=== PATIENT | male | born 1995 | race American Indian/Alaskan Native ===

== ENCOUNTER 2017-04-15 23:09 | Emergency (ER) | payer SELFPAY ==
[2017-04-16 00:15] LABS: Basophils % (Auto) 0.5 % (0.0-1.8); Hematocrit 43.2 % (35.5-45.6); Hemoglobin 13.8 gm/dl (11.8-15.2); Mean Corpuscular HGB Conc 32 % (32-34); Mean Corpuscular Hemoglobin 30 pg (28-32); Mean Corpuscular Volume 93 fl (84-94); Platelet Count 165 K/mm3 (140-440); Red Blood Count 4.65 M/mm3 (3.65-5.03); Red Cell Distribution Width 13.4 % (13.2-15.2); White Blood Count 6.3 K/mm3 (4.5-11.0)
[2017-04-16 00:33] LABS: Anion Gap 20 mmol/L; BUN/Creatinine Ratio 18.33; Blood Urea Nitrogen 22 mg/dL (9-20); Calcium 9.1 mg/dL (8.4-10.2); Carbon Dioxide 22 mmol/L (22-30); Chloride 102.9 mmol/L (98-107); Glucose 85 mg/dL (75-100); Potassium 4.1 mmol/L (3.6-5.0); Sodium 141 mmol/L (137-145)
[2017-04-16 02:13] LABS: Bilirubin,Urine NEG (Negative); Blood,Urine NEG (Negative); Ketones,Urine NEG (Negative); Leukocyte Esterase,Urine NEG (Negative); Mucus,Urine FEW /HPF; Nitrite,Urine NEG (Negative)
[2017-04-16] MEDS ORDERED: MOTRIN PO ONE (05:24)
--- NOTE | 2017-04-16 05:27 | Emergency Department Report ---
ED Back Pain/Injury HPI - General Chief Complaint: Back Pain/Injury Stated Complaint: KIDENY PAIN Time Seen by Provider: 04/16/17 03:17 Source: patient Limitations: No Limitations - History of Present Illness Initial Comments: 22-year-old male presents with complaint of 2 weeks of lower back pain. Denies any direct trauma no fever no chills. States he may have had slightly increased urinary frequency and some dysuria but denies any discharge and states he has not been sexually active in over 6 months. No history of STDs. No nausea no vomiting no abdominal pain no fevers no chills reported by the patient. Denies any foul-smelling urine. States he may have strained his lower back while lifting heavy boxes at work. Patient [place] [employer]. Patient is awake alert and oriented 3 nontoxic appearing not in acute distress. Comfortably on examination bed. Patient is ambulatory without assistance. MD Complaint: back pain Onset/Timin -: week(s) Severity: mild Severity scale (0 -10): 3 Worsens With: none - Related Data Previous Rx's Medication Instructions Recorded Last Taken Type Cyclobenzaprine [Flexeril] 10 mg PO TID PRN #12 tablet 04/16/17 Unknown Rx Naproxen [Naprosyn TAB] 500 mg PO BID PRN #20 tablet 04/16/17 Unknown Rx Allergies Allergy/AdvReac Type Severity Reaction Status Date / Time No Known Allergies Allergy Verified 04/15/17 23:42 ED Review of Systems ROS: Stated complaint: KIDENY PAIN Other details as noted in HPI Constitutional: denies: chills, fever Eyes: denies: eye pain, eye discharge, vision change ENT: denies: ear pain, throat pain Respiratory: denies: cough, shortness of breath, wheezing Cardiovascular: denies: chest pain, palpitations Endocrine: no symptoms reported Gastrointestinal: denies: abdominal pain, nausea, diarrhea Genitourinary: frequency. denies: urgency, dysuria Musculoskeletal: as per HPI, back pain. denies: joint swelling, arthralgia Skin: denies: rash, lesions Neurological: denies: headache, weakness, paresthesias Psychiatric: denies: anxiety, depression Hematological/Lymphatic: denies: easy bleeding, easy bruising ED Past Medical Hx - Past Medical History Previous Medical History?: No - Surgical History Past Surgical History?: No - Social History Smoking Status: Never Smoker Substance Use Type: None - Medications Home Medications: Home Medications Medication Instructions Recorded Confirmed Last Taken Type Cyclobenzaprine [Flexeril] 10 mg PO TID PRN #12 tablet 04/16/17 Unknown Rx Naproxen [Naprosyn TAB] 500 mg PO BID PRN #20 tablet 04/16/17 Unknown Rx ED Physical Exam - General Limitations: No Limitations General appearance: alert, in no apparent distress - Head Head exam: Present: atraumatic, normocephalic - Eye Eye exam: Present: normal appearance, PERRL, EOMI - ENT ENT exam: Present: mucous membranes moist - Neck Neck exam: Present: normal inspection - Respiratory Respiratory exam: Present: normal lung sounds bilaterally. Absent: respiratory distress - Cardiovascular Cardiovascular Exam: Present: regular rate, normal rhythm. Absent: systolic murmur, diastolic murmur, rubs, gallop - GI/Abdominal GI/Abdominal exam: Present: soft, normal bowel sounds - Rectal Rectal exam: Present: deferred - Extremities Exam Extremities exam: Present: normal inspection - Back Exam Back exam: Present: normal inspection, other (patient has no CVA tenderness on exam bilaterally) - Neurological Exam Neurological exam: Present: alert, oriented X3, CN II-XII intact, normal gait - Psychiatric Psychiatric exam: Present: normal affect, normal mood - Skin Skin exam: Present: warm, dry, intact, normal color. Absent: rash ED Course Vital Signs 04/15/17 04/16/17 04/16/17 23:42 02:47 07:02 Temperature 98.4 F 98.1 F 97.9 F Pulse Rate 70 53 L 56 L Respiratory 20 18 16 Rate Blood Pressure 107/62 105/47 Blood Pressure 117/74 [Right] O2 Sat by Pulse 98 97 98 Oximetry ED Medical Decision Making - Lab Data Result diagrams: 04/15/17 23:52 04/15/17 23:52 - Medical Decision Making A/P: Lower back pain 1-Motrin and Flexeril when necessary 2-CT unremarkable, UA, labs unremarkable. Slight elevation in CK. Patient tolerating by mouth fluids, I encouraged him to remain 3-follow-up with primary care 4- urinalysis unremarkable Critical care attestation.: If time is entered above; I have spent that time in minutes in the direct care of this critically ill patient, excluding procedure time. ED Disposition Clinical Impression: Back pain Qualifiers: Back pain location: low back pain Chronicity: acute Back pain laterality: bilateral Sciatica presence: without sciatica Qualified Code(s): M54.5 - Low back pain Disposition: TO HOME OR SELFCARE Is pt being admited?: No Does the pt Need Aspirin: No Condition: Stable Instructions: Low Back Strain (ED), Acute Low Back Pain (ED), Back Pain (ED) Prescriptions: Cyclobenzaprine [Flexeril] 10 mg PO TID PRN #12 tablet PRN Reason: Muscle Spasm Naproxen [Naprosyn TAB] 500 mg PO BID PRN #20 tablet PRN Reason: Pain Referrals: [facility] [Outside] - 3-5 Days [facility] [Outside] - 3-5 Days Forms: Work/School Release Form(ED) Time of Disposition: 06:45
--- NOTE | 2017-04-16 06:27 | Cat Scan Report ---
FINAL REPORT EXAM: CT ABDOMEN PELVIS WO CON HISTORY: flank pain, ? kidney stone TECHNIQUE: CT images obtained through the Abdomen and Pelvis without contrast. Transaxial,coronal and sagittal reformats are provided. PRIORS: None. FINDINGS: Imaged intrathoracic contents are unremarkable. Kidneys are normal in size, axis and position. No hydronephrosis or nephrolithiasis. The ureters are normal in course and caliber. No stones are seen within the urinary bladder. The liver, gallbladder, pancreas, spleen, and adrenal glands demonstrate a normal noncontrast appearance. Hollow enteric organs are normal in course and caliber. Large colonic stool burden. No findings of acute appendicitis. No intra-abdominal free air/fluid or lymphadenopathy. Aorta is normal in course and caliber. Superficial soft tissues are unremarkable. No acute or aggressive appearing skeletal findings. L5-S1 spondylolysis. IMPRESSION: No CT evidence of obstructive urolithiasis or other acute abdominal or pelvic findings.
[2017-04-16 07:03] VITALS: BP 117/74
== END 2017-04-16 07:02 | disposition home or self-care (01) ==
LOC: ED 23:09
DX: M54.5 Low back pain (principal); R30.0 Dysuria
CPT/HCPCS: 36415; 74176; 80048; 81001; 82550; 85025

== ENCOUNTER 2019-03-09 11:06 | Emergency (ER) | payer BC, OTHER ==
[2019-03-09 11:14] VITALS: BP 115/64
--- NOTE | 2019-03-09 11:16 | Event Note ---
ED Screening Note Date of service: 03/09/19 Time: 11:14 ED Screening Note: This is a 24 y.o. M. that presents to the ER for weakness and left flank pain for 2-3 months. He reports giving plasma for 3 months. Former smoker This initial assessment/diagnostic orders/clinical plan/treatment(s) is/are subject to change based on patients health status, clinical progression and re- assessment by fellow clinical providers in the ED. Further treatment and workup at subsequent clinical providers discretion. Patient/guardian urged not to elope from the ED as their condition may be serious if not clinically assessed and managed. Initial orders include: Labs
[2019-03-09 11:35] LABS: Bilirubin,Urine NEG (Negative); Blood,Urine NEG (Negative); Color,Urine Yellow (Yellow); Mucus,Urine FEW /HPF; Protein,Urine <15 mg/dL mg/dL (Negative)
[2019-03-09 11:41] LABS: Hematocrit 42.5 % (35.5-45.6); Hemoglobin 14.4 gm/dl (11.8-15.2); Mean Corpuscular HGB Conc 34 % (32-34); Mean Corpuscular Volume 93 fl (84-94); Platelet Count 177 K/mm3 (140-440); Red Blood Count 4.59 M/mm3 (3.65-5.03)
[2019-03-09] MEDS ORDERED: ZOFRAN IV ONE (11:48)
[2019-03-09] MEDS ORDERED: NACL 0.9% 1000 ML 1,000 ML IV ONE (11:48)
[2019-03-09 12:02] LABS: BUN/Creatinine Ratio 15; Blood Urea Nitrogen 15 mg/dL (9-20); Calcium 8.9 mg/dL (8.4-10.2); Hemolysis Index 5
--- NOTE | 2019-03-09 12:26 | Emergency Department Report ---
ED General Adult HPI - General Chief complaint: Medical Clearance Stated complaint: WEAKNESS Time Seen by Provider: 03/09/19 11:14 Source: patient Mode of arrival: Ambulatory Limitations: No Limitations - History of Present Illness Initial comments: Patient is a 24-year-old male presents to the emergency room with complaints of just feeling generalized fatigue. He states that yesterday he celebrated his birthday and had an entire bottle of champagne. He states he has associated nausea. He is able to tolerate by mouth intake. He denies any vomiting or abdominal pain. Patient states that he has also been donating plasma over the last couple months. He states he is also working 2 jobs. The patient states he just feels physically tired. He does not report any chest pain, chills, urinary sx, diarrhea, fever, shortness of breath, night sweats, or any other sx. - Related Data Previous Rx's Medication Instructions Recorded Last Taken Type Cyclobenzaprine [Flexeril] 10 mg PO TID PRN #12 tablet 04/16/17 Unknown Rx Naproxen [Naprosyn TAB] 500 mg PO BID PRN #20 tablet 04/16/17 Unknown Rx Allergies Allergy/AdvReac Type Severity Reaction Status Date / Time No Known Allergies Allergy Verified 04/15/17 23:42 ED Review of Systems ROS: Stated complaint: WEAKNESS Other details as noted in HPI Comment: All other systems reviewed and negative ED Past Medical Hx - Past Medical History Previous Medical History?: No - Surgical History Past Surgical History?: No - Social History Smoking Status: Former Smoker Substance Use Type: Alcohol - Medications Home Medications: Home Medications Medication Instructions Recorded Confirmed Last Taken Type Cyclobenzaprine [Flexeril] 10 mg PO TID PRN #12 tablet 04/16/17 Unknown Rx Naproxen [Naprosyn TAB] 500 mg PO BID PRN #20 tablet 04/16/17 Unknown Rx ED Physical Exam - General Limitations: No Limitations General appearance: alert, in no apparent distress - Head Head exam: Present: atraumatic, normocephalic - Eye Eye exam: Present: normal appearance, PERRL - ENT ENT exam: Present: mucous membranes moist - Respiratory Respiratory exam: Present: normal lung sounds bilaterally. Absent: respiratory distress, wheezes, rales, rhonchi, stridor, accessory muscle use, decreased breath sounds, prolonged expiratory - Cardiovascular Cardiovascular Exam: Present: regular rate, normal rhythm, normal heart sounds. Absent: systolic murmur, diastolic murmur, rubs, gallop - GI/Abdominal GI/Abdominal exam: Present: soft, normal bowel sounds. Absent: distended, tenderness, guarding, rebound, rigid - Neurological Exam Neurological exam: Present: alert, oriented X3 - Psychiatric Psychiatric exam: Present: normal affect, normal mood - Skin Skin exam: Present: warm, dry, intact ED Course Vital Signs 03/09/19 11:12 Temperature 97.8 F Pulse Rate 59 L Respiratory 18 Rate Blood Pressure 115/64 O2 Sat by Pulse 98 Oximetry ED Medical Decision Making - Lab Data Result diagrams: 03/09/19 11:32 03/09/19 11:32 Lab Results 03/09/19 03/09/19 03/09/19 Range/Units 11:32 11:32 Unknown WBC 3.9 L (4.5-11.0) K/mm3 RBC 4.59 (3.65-5.03) M/mm3 Hgb 14.4 (11.8-15.2) gm/dl Hct 42.5 (35.5-45.6) % MCV 93 (84-94) fl MCH 31 (28-32) pg MCHC 34 (32-34) % RDW 14.0 (13.2-15.2) % Plt Count 177 (140-440) K/mm3 Sodium 140 (137-145) mmol/L Potassium 4.0 (3.6-5.0) mmol/L Chloride 104.3 (98-107) mmol/L Carbon Dioxide 27 (22-30) mmol/L Anion Gap 13 mmol/L BUN 15 (9-20) mg/dL Creatinine 1.0 (0.8-1.5) mg/dL Estimated GFR > 60 ml/min BUN/Creatinine Ratio 15 % Glucose 85 (75-100) mg/dL Calcium 8.9 (8.4-10.2) mg/dL Total Bilirubin (0.1-1.2) mg/dL Direct Bilirubin (0-0.2) mg/dL Indirect Bilirubin mg/dL AST (5-40) units/L ALT (7-56) units/L Alkaline Phosphatase (35-129) units/L Total Protein (6.3-8.2) g/dL Albumin (3.9-5) g/dL Albumin/Globulin Ratio % Urine Color Yellow (Yellow) Urine Turbidity Clear (Clear) Urine pH 6.0 (5.0-7.0) Ur Specific [place] 1.028 (1.003-1.030) Urine Protein <15 mg/dl (Negative) mg/dL Urine Glucose (UA) Neg (Negative) mg/dL Urine Ketones Neg (Negative) mg/dL Urine Blood Neg (Negative) Urine Nitrite Neg (Negative) Urine Bilirubin Neg (Negative) Urine Urobilinogen 2.0 (<2.0) mg/dL Ur Leukocyte Esterase Neg (Negative) Urine WBC (Auto) 1.0 (0.0-6.0) /HPF Urine RBC (Auto) 2.0 (0.0-6.0) /HPF U Epithel Cells (Auto) < 1.0 (0-13.0) /HPF Urine Mucus Few /HPF 03/09/19 Range/Units Unknown WBC (4.5-11.0) K/mm3 RBC (3.65-5.03) M/mm3 Hgb (11.8-15.2) gm/dl Hct (35.5-45.6) % MCV (84-94) fl MCH (28-32) pg MCHC (32-34) % RDW (13.2-15.2) % Plt Count (140-440) K/mm3 Sodium (137-145) mmol/L Potassium (3.6-5.0) mmol/L Chloride (98-107) mmol/L Carbon Dioxide (22-30) mmol/L Anion Gap mmol/L BUN (9-20) mg/dL Creatinine (0.8-1.5) mg/dL Estimated GFR ml/min BUN/Creatinine Ratio % Glucose (75-100) mg/dL Calcium (8.4-10.2) mg/dL Total Bilirubin 0.40 (0.1-1.2) mg/dL Direct Bilirubin < 0.2 (0-0.2) mg/dL Indirect Bilirubin 0.2 mg/dL AST 26 (5-40) units/L ALT 16 (7-56) units/L Alkaline Phosphatase 63 (35-129) units/L Total Protein 7.2 (6.3-8.2) g/dL Albumin 4.4 (3.9-5) g/dL Albumin/Globulin Ratio 1.6 % Urine Color (Yellow) Urine Turbidity (Clear) Urine pH (5.0-7.0) Ur Specific [place] (1.003-1.030) Urine Protein (Negative) mg/dL Urine Glucose (UA) (Negative) mg/dL Urine Ketones (Negative) mg/dL Urine Blood (Negative) Urine Nitrite (Negative) Urine Bilirubin (Negative) Urine Urobilinogen (<2.0) mg/dL Ur Leukocyte Esterase (Negative) Urine WBC (Auto) (0.0-6.0) /HPF Urine RBC (Auto) (0.0-6.0) /HPF U Epithel Cells (Auto) (0-13.0) /HPF Urine Mucus /HPF - Medical Decision Making Patient is a 24-year-old male presents to the emergency room with complaints of just feeling generalized fatigue. He states that yesterday he celebrated his birthday and had an entire bottle of champagne. He states he has associated nausea. He is able to tolerate by mouth intake. He denies any vomiting or abdominal pain. Patient states that he has also been donating plasma over the last couple months. He states he is also working 2 jobs. The patient states he just feels physically tired. He does not report any chest pain, chills, urinary sx, diarrhea, fever, shortness of breath, night sweats, or any other sx. vitals are stable. labs WNL. UA is normal. pt given 1L of NS and zofran. pt states he feels much better. advised pt to please drink plenty of water. Get plenty of sleep at night. Follow up with a primary care doctor in the next 2-3 days. Return to the emergency room for any new or worsening symptoms. Critical care attestation.: If time is entered above; I have spent that time in minutes in the direct care of this critically ill patient, excluding procedure time. ED Disposition Clinical Impression: Fatigue Qualifiers: Fatigue type: unspecified Qualified Code(s): R53.83 - Other fatigue Disposition: DC-01 TO HOME OR SELFCARE Is pt being admited?: No Does the pt Need Aspirin: No Condition: Stable Instructions: Fatigue (ED) Additional Instructions: Please drink plenty of water. Get plenty of sleep at night. Follow up with a primary care doctor in the next 2-3 days. Return to the emergency room for any new or worsening symptoms. Referrals: [facility] [Provider Group] - 2-3 Days Time of Disposition: 12:44 Print Language: GREEK
[2019-03-09 12:30] LABS: Alanine Aminotransferase 16 units/L (7-56); Albumin 4.4 g/dL (3.9-5)
[2019-03-09 12:41] LABS: Bilirubin,Direct < 0.2 mg/dL (0-0.2)
== END 2019-03-09 12:54 | disposition home or self-care (01) ==
LOC: ED 11:06
DX: R53.83 Other fatigue (principal); R11.0 Nausea; Z87.891 Personal history of nicotine dependence; Z79.899 Other long term (current) drug therapy
CPT/HCPCS: 36415; 80048; 80076; 81001; 85027; 96374; 99283; J2405; J7030

== ENCOUNTER 2019-08-24 14:52 | Emergency (ER) | payer BC ==
[2019-08-24 16:41] LABS: Basophils % (Auto) 0.7 % (0.0-1.8); Eosinophils % (Auto) 0.5 % (0.0-4.3); Hemoglobin 14.4 gm/dl (11.8-15.2); Lymphocytes # (Auto) 1.3 K/mm3 (1.2-5.4); Lymphocytes % (Auto) 31.9 % (13.4-35.0); Mean Corpuscular HGB Conc 33 % (32-34); Mean Corpuscular Volume 92 fl (84-94); Monocytes # (Auto) 0.5 K/mm3 (0.0-0.8); Monocytes % (Auto) 12.7 % (0.0-7.3); Platelet Count 175 K/mm3 (140-440); Red Blood Count 4.66 M/mm3 (3.65-5.03); Red Cell Distribution Width 13.5 % (13.2-15.2)
[2019-08-24 17:04] LABS: Alanine Aminotransferase 11 units/L (7-56); Albumin 4.5 g/dL (3.9-5); BUN/Creatinine Ratio 15; Blood Urea Nitrogen 17 mg/dL (9-20); Calcium 9.2 mg/dL (8.4-10.2); Hemolysis Index 10
[2019-08-24 17:22] LABS: Bilirubin,Urine NEG (Negative); Blood,Urine NEG (Negative); Color,Urine Yellow (Yellow); Mucus,Urine FEW /HPF; Protein,Urine <15 mg/dL mg/dL (Negative)
--- NOTE | 2019-08-24 19:20 | Emergency Department Report ---
ED Abdominal Pain HPI - General Chief Complaint: Nausea/Vomiting/Diarrhea Stated Complaint: WEAK/BELLY PAIN Time Seen by Provider: 08/24/19 18:17 Source: patient Mode of arrival: Ambulatory Limitations: No Limitations - History of Present Illness Initial Comments: Patient is a 24-year-old -[place] male who is complaining of abdominal pain. Patient states since in the bilateral mid abdomen right greater than left. He has occasional nausea vomiting. Patient states he has some weakness and decreased energy. Patient states that he has bouts of diarrhea but also bouts of constipation. Patient states this pain is worse with eating. He moriah es any blood in his vomit or stool. Patient states this going on "for months". Patient states he does not have primary care physician has not had any follow-up despite having [facility] insurance. Severity scale (0 -10): 8 - Related Data Previous Rx's Medication Instructions Recorded Last Taken Type Cyclobenzaprine [Flexeril] 10 mg PO TID PRN #12 tablet 04/16/17 Unknown Rx Naproxen [Naprosyn TAB] 500 mg PO BID PRN #20 tablet 04/16/17 Unknown Rx Dicyclomine [Bentyl] 20 mg PO QID #10 tablet 08/24/19 Unknown Rx Docusate Sodium [Colace] 100 mg PO BID #20 capsule 08/24/19 Unknown Rx Famotidine [Pepcid] 40 mg PO QHS #10 tablet 08/24/19 Unknown Rx Ondansetron [Zofran Odt] 4 mg PO Q8HR #10 tab.rapdis 08/24/19 Unknown Rx Allergies Allergy/AdvReac Type Severity Reaction Status Date / Time No Known Allergies Allergy Verified 08/24/19 15:08 ED Review of Systems ROS: Stated complaint: WEAK/BELLY PAIN Other details as noted in HPI Comment: All other systems reviewed and negative ED Past Medical Hx - Past Medical History Previous Medical History?: No - Surgical History Past Surgical History?: No - Social History Smoking Status: Never Smoker Substance Use Type: None - Medications Home Medications: Home Medications Medication Instructions Recorded Confirmed Last Taken Type Cyclobenzaprine [Flexeril] 10 mg PO TID PRN #12 tablet 04/16/17 Unknown Rx Naproxen [Naprosyn TAB] 500 mg PO BID PRN #20 tablet 04/16/17 Unknown Rx Dicyclomine [Bentyl] 20 mg PO QID #10 tablet 08/24/19 Unknown Rx Docusate Sodium [Colace] 100 mg PO BID #20 capsule 08/24/19 Unknown Rx Famotidine [Pepcid] 40 mg PO QHS #10 tablet 08/24/19 Unknown Rx Ondansetron [Zofran Odt] 4 mg PO Q8HR #10 tab.rapdis 08/24/19 Unknown Rx ED Physical Exam - General Limitations: No Limitations General appearance: alert, in no apparent distress - Head Head exam: Present: atraumatic, normocephalic - Eye Eye exam: Present: normal appearance, PERRL, EOMI - ENT ENT exam: Present: mucous membranes moist - Neck Neck exam: Present: normal inspection - Respiratory Respiratory exam: Present: normal lung sounds bilaterally. Absent: respiratory distress, wheezes, rales, rhonchi - Cardiovascular Cardiovascular Exam: Present: regular rate, normal rhythm, normal heart sounds. Absent: systolic murmur, diastolic murmur, rubs, gallop - GI/Abdominal GI/Abdominal exam: Present: soft, normal bowel sounds. Absent: distended, tenderness (no significant reproducible tenderness on palpation), guarding, rebound, rigid - Rectal Rectal exam: Present: deferred - Extremities Exam Extremities exam: Present: normal inspection - Back Exam Back exam: Present: normal inspection - Neurological Exam Neurological exam: Present: alert, oriented X3 - Psychiatric Psychiatric exam: Present: normal affect, normal mood - Skin Skin exam: Present: warm, dry, intact, normal color. Absent: rash ED Course Vital Signs 08/24/19 15:01 Temperature 98.2 F Pulse Rate 70 Respiratory 13 Rate Blood Pressure 114/69 [Left] O2 Sat by Pulse 98 Oximetry ED Medical Decision Making - Lab Data Result diagrams: 08/24/19 16:03 08/24/19 16:03 Lab Results 08/24/19 08/24/19 08/24/19 Range/Units 16:03 16:03 Unknown WBC 4.1 L (4.5-11.0) K/mm3 RBC 4.66 (3.65-5.03) M/mm3 Hgb 14.4 (11.8-15.2) gm/dl Hct 43.0 (35.5-45.6) % MCV 92 (84-94) fl MCH 31 (28-32) pg MCHC 33 (32-34) % RDW 13.5 (13.2-15.2) % Plt Count 175 (140-440) K/mm3 Lymph % (Auto) 31.9 (13.4-35.0) % [place] % (Auto) 12.7 H (0.0-7.3) % Eos % (Auto) 0.5 (0.0-4.3) % Baso % (Auto) 0.7 (0.0-1.8) % Lymph # 1.3 (1.2-5.4) K/mm3 [place] # 0.5 (0.0-0.8) K/mm3 Eos # 0.0 (0.0-0.4) K/mm3 Baso # 0.0 (0.0-0.1) K/mm3 Seg Neutrophils % 54.2 (40.0-70.0) % Seg Neutrophils # 2.2 (1.8-7.7) K/mm3 Sodium 142 (137-145) mmol/L Potassium 3.8 (3.6-5.0) mmol/L Chloride 103.5 (98-107) mmol/L Carbon Dioxide 25 (22-30) mmol/L Anion Gap 17 mmol/L BUN 17 (9-20) mg/dL Creatinine 1.1 (0.8-1.5) mg/dL Estimated GFR > 60 ml/min BUN/Creatinine Ratio 15 % Glucose 91 (75-100) mg/dL Calcium 9.2 (8.4-10.2) mg/dL Total Bilirubin 0.50 (0.1-1.2) mg/dL AST 21 (5-40) units/L ALT 11 (7-56) units/L Alkaline Phosphatase 66 (35-129) units/L Total Protein 7.1 (6.3-8.2) g/dL Albumin 4.5 (3.9-5) g/dL Albumin/Globulin Ratio 1.7 % Urine Color Yellow (Yellow) Urine Turbidity Clear (Clear) Urine pH 6.0 (5.0-7.0) Ur Specific [place] 1.026 (1.003-1.030) Urine Protein <15 mg/dl (Negative) mg/dL Urine Glucose (UA) Neg (Negative) mg/dL Urine Ketones Neg (Negative) mg/dL Urine Blood Neg (Negative) Urine Nitrite Neg (Negative) Urine Bilirubin Neg (Negative) Urine Urobilinogen 4.0 (<2.0) mg/dL Ur Leukocyte Esterase Neg (Negative) Urine WBC (Auto) 1.0 (0.0-6.0) /HPF Urine RBC (Auto) 1.0 (0.0-6.0) /HPF Urine Mucus Few /HPF - Medical Decision Making The patient does have some chronic pain however he has not had any evaluation. Laboratory studies were done to time and if the patient had elevated white count making some type of underlying infection or prominent or head some elevation of his bilirubin or hepatic enzymes. All of his laboratory studies are within normal limits and did not feel as though further imaging was warranted from the emergency department. Patient will be given referrals to GI for probable scope. Patient likely has irritable bowel disease. Patient started on Bentyl and Colace for stool softener and Zofran as needed he'll be discharged home. Critical care attestation.: If time is entered above; I have spent that time in minutes in the direct care of this critically ill patient, excluding procedure time. ED Disposition Clinical Impression: Irritable bowel syndrome Disposition: DC-01 TO HOME OR SELFCARE Is pt being admited?: No Does the pt Need Aspirin: No Condition: Stable Instructions: Irritable Bowel Syndrome (ED) Referrals: [facility] [Provider Group] - 3-5 Days Time of Disposition: 19:21
[2019-08-24 19:52] VITALS: BP 120/50
== END 2019-08-24 19:51 | disposition home or self-care (01) ==
LOC: ED 14:52
DX: K58.9 Irritable bowel syndrome, unspecified (principal)
CPT/HCPCS: 36415; 80053; 81001; 85025; 99283

== ENCOUNTER 2019-10-19 12:07 | Emergency (ER) | payer BC ==
[2019-10-19 12:26] VITALS: BP 122/71
[2019-10-19] MEDS ORDERED: KETOROLAC 30 MG/1 ML INJ IV STA (12:32)
[2019-10-19] MEDS ORDERED: diphenhydrAMINE 50 MG/ML VIAL IV STA (12:32)
[2019-10-19] MEDS ORDERED: METOCLOPRAMIDE 10 MG/2 ML INJ IV STA (12:32)
[2019-10-19] MEDS ORDERED: SODIUM CHLORIDE 0.9% 1000 ML 1,000 ML IV ONE (12:32)
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
--- NOTE | 2019-10-19 12:51 | XRay Report ---
CHEST 2 VIEWS INDICATION / CLINICAL INFORMATION: cough. COMPARISON: None available. FINDINGS: SUPPORT DEVICES: None. HEART / MEDIASTINUM: No significant abnormality. LUNGS / PLEURA: No significant pulmonary or pleural abnormality. No pneumothorax. ADDITIONAL FINDINGS: No significant additional findings. IMPRESSION: 1. No acute abnormality of the chest. Signer Name: Alec Lipscomb MD Signed: 10/19/2019 12:47 PM Workstation Name: [id number]
--- NOTE | 2019-10-19 13:46 | Cat Scan Report ---
CT head/brain wo con INDICATION: headache. TECHNIQUE: Routine CT head without contrast. All CT scans at this location are performed using CT dos e reduction for ALARA by means of automated exposure control. COMPARISON: None. FINDINGS: BRAIN / INTRACRANIAL CONTENTS: No acute hemorrhage, mass effect, midline shift, or hydrocephalus. No appreciable acute large territorial or lacunar infarct. No chronic infarct or focal atrophy. Normal b rain volume and ventricular/sulcal size for age. ORBITS: No significant abnormality of visualized orbits. SINUSES / MASTOIDS: No significant abnormality of visualized sinuses and mastoid air cells. ADDITIONAL FINDINGS: None. IMPRESSION: 1. No acute intracranial abnormality. Signer Name: Patricio Mckeon MD Signed: 10/19/2019 1:41 PM Workstation Name: [id number]
== END 2019-10-19 14:42 | disposition home or self-care (01) ==
LOC: ED 12:07
DX: R51 Headache (principal); R07.89 Other chest pain; Z79.899 Other long term (current) drug therapy
CPT/HCPCS: 70450; 71046; 96374; 96375; 99284; J1200; J1885; J2765; J7030

== ENCOUNTER 2020-06-30 13:12 | Emergency (ER) | payer SELFPAY ==
--- NOTE | 2020-06-30 14:17 | Emergency Department Report ---
ED Male HPI - General Chief complaint: Urogenital-Male Stated complaint: ALLERGIC REACTION Time Seen by Provider: 06/30/20 13:29 Source: patient Mode of arrival: Ambulatory Limitations: No Limitations - History of Present Illness Initial comments: This is a pleasant 25-year-old male who presents the emergency department with a chief complaint of a irritating rash to his penis. Patient reports he used a new brand of condoms and since then has been having this irritating rash. He has been taking Benadryl with only minimal relief in his symptoms. He denies any dysuria, penile discharge, fever, chills, night sweats, headache, dizziness, blurry vision, nausea,, diarrhea, chest pain, shortness of breath or any other associated symptoms. He denies any known past medical history, current medication use or known allergies to medications. - Related Data Previous Rx's Medication Instructions Recorded Last Taken Type Cyclobenzaprine [Flexeril] 10 mg PO TID PRN #12 tablet 04/16/17 Unknown Rx Naproxen [Naprosyn TAB] 500 mg PO BID PRN #20 tablet 04/16/17 Unknown Rx Dicyclomine [Bentyl] 20 mg PO QID #10 tablet 08/24/19 Unknown Rx Docusate Sodium [Colace] 100 mg PO BID #20 capsule 08/24/19 Unknown Rx Famotidine [Pepcid] 40 mg PO QHS #10 tablet 08/24/19 Unknown Rx Ondansetron [Zofran Odt] 4 mg PO Q8HR #10 tab.rapdis 08/24/19 Unknown Rx Butalb/Acetaminophen/Caffeine 1 cap PO Q8HR PRN #20 cap 10/19/19 Unknown Rx [Fioricet 50-300-40 mg CAP] methylPREDNISolone [Medrol 4MG 4 mg PO ONCE #1 tab.ds.pk 06/30/20 Unknown Rx DOSEPAK (21 tabs)] Allergies Allergy/AdvReac Type Severity Reaction Status Date / Time No Known Allergies Allergy Verified 08/24/19 15:08 ED Review of Systems ROS: Stated complaint: ALLERGIC REACTION Other details as noted in HPI Comment: All other systems reviewed and negative Constitutional: denies: chills, fever Eyes: denies: eye pain, eye discharge, vision change ENT: denies: ear pain, throat pain Respiratory: denies: cough, shortness of breath, wheezing Cardiovascular: denies: chest pain, palpitations Endocrine: no symptoms reported Gastrointestinal: denies: abdominal pain, nausea, diarrhea Genitourinary: denies: urgency, dysuria Musculoskeletal: denies: back pain, joint swelling, arthralgia Skin: denies: rash, lesions Neurological: denies: headache, weakness, paresthesias Psychiatric: denies: anxiety, depression Hematological/Lymphatic: denies: easy bleeding, easy bruising ED Past Medical Hx - Past Medical History Previous Medical History?: No - Surgical History Past Surgical History?: No - Social History Smoking Status: Never Smoker Substance Use Type: None - Medications Home Medications: Home Medications Medication Instructions Recorded Confirmed Last Taken Type Cyclobenzaprine [Flexeril] 10 mg PO TID PRN #12 tablet 04/16/17 Unknown Rx Naproxen [Naprosyn TAB] 500 mg PO BID PRN #20 tablet 04/16/17 Unknown Rx Dicyclomine [Bentyl] 20 mg PO QID #10 tablet 08/24/19 Unknown Rx Docusate Sodium [Colace] 100 mg PO BID #20 capsule 08/24/19 Unknown Rx Famotidine [Pepcid] 40 mg PO QHS #10 tablet 08/24/19 Unknown Rx Ondansetron [Zofran Odt] 4 mg PO Q8HR #10 tab.rapdis 08/24/19 Unknown Rx Butalb/Acetaminophen/Caffeine 1 cap PO Q8HR PRN #20 cap 10/19/19 Unknown Rx [Fioricet 50-300-40 mg CAP] methylPREDNISolone [Medrol 4MG 4 mg PO ONCE #1 tab.ds.pk 06/30/20 Unknown Rx DOSEPAK (21 tabs)] ED Physical Exam - General Limitations: No Limitations General appearance: alert, in no apparent distress - Head Head exam: Present: atraumatic, normocephalic - Eye Eye exam: Present: normal appearance, PERRL, EOMI Pupils: Present: normal accommodation - ENT ENT exam: Present: normal exam, normal orophraynx, mucous membranes moist - Neck Neck exam: Present: normal inspection, full ROM. Absent: tenderness, meningismus - Respiratory Respiratory exam: Present: normal lung sounds bilaterally. Absent: respiratory distress, wheezes, rales, rhonchi, stridor - Cardiovascular Cardiovascular Exam: Present: regular rate, normal rhythm, normal heart sounds. Absent: systolic murmur, diastolic murmur, rubs, gallop - GI/Abdominal GI/Abdominal exam: Present: soft, normal bowel sounds. Absent: distended, tenderness, guarding, rebound, rigid - Rectal Rectal exam: Present: deferred - exam: Present: normal inspection. Absent: urethral discharge External exam: Present: normal external exam. Absent: lesions - Extremities Exam Extremities exam: Present: normal inspection, full ROM, normal capillary refill. Absent: tenderness - Back Exam Back exam: Present: normal inspection, full ROM. Absent: tenderness, CVA tenderness (R), CVA tenderness (L) - Neurological Exam Neurological exam: Present: alert, oriented X3, CN II-XII intact, normal gait - Psychiatric Psychiatric exam: Present: normal affect, normal mood - Skin Skin exam: Present: warm, dry, intact, normal color. Absent: rash ED Medical Decision Making - Medical Decision Making Patient nontoxic in no acute distress. He had no symptoms of an STD and I suspect his symptoms are secondary to allergic contact dermatitis. Recommended short course of a steroid pack in addition continue Benadryl and follow-up with the medical clinic for any STD testing. He verbalized understand the diagnosis, treatment plan follow-up instructions all his questions were answered. Critical care attestation.: If time is entered above; I have spent that time in minutes in the direct care of this critically ill patient, excluding procedure time. ED Disposition Clinical Impression: Allergic contact dermatitis Qualifiers: Contact dermatitis trigger: other trigger Qualified Code(s): L23.89 - Allergic contact dermatitis due to other agents; L23.8 - Allergic contact dermatitis due to other agents Disposition: DC-01 TO HOME OR SELFCARE Is pt being admited?: No Condition: Stable Instructions: Contact Dermatitis, [id number]-Rnit Prescriptions: methylPREDNISolone [Medrol 4MG DOSEPAK (21 tabs)] 4 mg PO ONCE #1 tab.ds.pk Referrals: [facility] [Provider Group] - 3-5 Days [facility] [Outside] - 3-5 Days Time of Disposition: 14:17
== END 2020-06-30 14:32 | disposition home or self-care (01) ==
LOC: ED 13:12
DX: L23.9 Allergic contact dermatitis, unspecified cause (principal); Z79.899 Other long term (current) drug therapy
CPT/HCPCS: 99282

== ENCOUNTER 2020-08-19 21:28 | Emergency (ER) | payer SELFPAY ==
[2020-08-19 22:00] VITALS: BP 113/62
[2020-08-20 02:34] LABS: Bilirubin,Urine NEG (Negative); Blood,Urine NEG (Negative); Color,Urine Yellow (Yellow); Mucus,Urine FEW /HPF; Protein,Urine <15 mg/dL mg/dL (Negative); RBC,Urine < 1.0 /HPF (0.0-6.0); Urobilinogen,Urine < 2.0 mg/dL (<2.0)
--- NOTE | 2020-08-20 04:19 | Cat Scan Report ---
CT abdomen pelvis wo con INDICATION / CLINICAL INFORMATION: Pt complains of Pelvic pain ever since .. TECHNIQUE: Axial CT imaging of abdomen and pelvis was obtained without contrast. Coronal and sagittal reformatte d imaging obtained and reviewed. All CT scans at this location are performed using CT dose reduction for ALARA by means of automated exposure control. COMPARISON: Prior CT abdomen/pelvis 04/16/2017 FINDINGS: CT abdomen without contrast demonstrates grossly normal appearance of the liver, spleen, pancreas, ki dneys, adrenal glands, and gallbladder. No hydronephrosis or intrarenal calculi present. Abdominal ao rta is unremarkable. CT pelvis without contrast does not reveal any pelvic mass, free fluid, or focal inflammatory change. A normal appendix is present in the anterior mid abdomen. Prostate gland is of normal size and appea ilda. There is large colonic stool burden, as noted on prior study. GI tract is otherwise unremarkable. Visualized lung bases are clear. No acute significant osseous abnormality. IMPRESSION: 1. No acute finding within the abdomen or pelvis. 2. Large colonic stool burden, as noted on the 2017 CT scan. Signer Name: Nora Carrion MD Signed: 08/20/2020 4:15 AM Workstation Name: [id number]
[2020-08-20 04:21] LABS: Basophils # (Auto) 0.1 K/mm3 (0.0-0.1); Basophils % (Auto) 0.9 % (0.0-1.8); Eosinophils # (Auto) 0.1 K/mm3 (0.0-0.4); Eosinophils % (Auto) 1.1 % (0.0-4.3); Hematocrit 46.3 % (35.5-45.6); Hemoglobin 15.4 gm/dl (11.8-15.2); Lymphocytes # (Auto) 2.5 K/mm3 (1.2-5.4); Lymphocytes % (Auto) 37.6 % (13.4-35.0); Mean Corpuscular HGB Conc 33 % (32-34); Mean Corpuscular Volume 92 fl (84-94); Monocytes # (Auto) 0.7 K/mm3 (0.0-0.8); Platelet Count 197 K/mm3 (140-440); Red Blood Count 5.01 M/mm3 (3.65-5.03); Red Cell Distribution Width 13.5 % (13.2-15.2)
[2020-08-20 04:37] LABS: Alanine Aminotransferase 15 units/L (7-56); Albumin 4.7 g/dL (3.9-5); BUN/Creatinine Ratio 13; Blood Urea Nitrogen 14 mg/dL (9-20); Calcium 9.3 mg/dL (8.4-10.2); Hemolysis Index 5
[2020-08-20] MEDS ORDERED: AZITHROMYCIN 250 MG TAB PO ONE (05:16)
[2020-08-20] MEDS ORDERED: LIDOCAINE-MPF (1%) 10 MG/1 ML VIAL 5 ML INFILTRATI ONE (05:16)
[2020-08-20] MEDS ORDERED: IBUPROFEN 600 MG TAB PO ONE (05:17)
[2020-08-20] MEDS ORDERED: ONDANSETRON 4 MG ODT TAB PO ONE (05:17)
--- NOTE | 2020-08-20 06:18 | Emergency Department Report ---
ED Abdominal Pain HPI - General Chief Complaint: Abdominal Pain Stated Complaint: DEHYDRATIN/BACK PAIN/KIDNEY PAIN Source: patient Mode of arrival: Ambulatory Limitations: No Limitations - History of Present Illness Initial Comments: Patient is a 25-year-old -[place] male with no past medical history presents to the ED with complaint of acute onset persistent severe suprapubic pain and pressure for the last 2 weeks, worse in the last 2 days. Patient also complains of penile discharge, which he describes as greenish-yellow intermittently with dysuria and urinary frequency and urgency. Patient denies fever, chills, nausea, vomiting, diarrhea, hematuria, testicular pain, flank pain, low back pain, cough, shortness of breath or dizziness and change in vision or traumatic injury. MD Complaint: abdominal pain, other (penile pain; pelvic pressure; penile discharge) -: Sudden, week(s) (2) Location: suprapubic Radiation: none Migration to: no migration Severity scale (0 -10): 4 Quality: aching, sharp Consistency: intermittent Improves With: nothing Worsens With: nothing Associated Symptoms: denies other symptoms, nausea, dysuria. denies: vomiting, diarrhea, fever, chills, constipation, hematemesis, hematochezia, melena, anorexia - Related Data Previous Rx's Medication Instructions Recorded Last Taken Type Cyclobenzaprine [Flexeril] 10 mg PO TID PRN #12 tablet 04/16/17 Unknown Rx Naproxen [Naprosyn TAB] 500 mg PO BID PRN #20 tablet 04/16/17 Unknown Rx Dicyclomine [Bentyl] 20 mg PO QID #10 tablet 08/24/19 Unknown Rx Docusate Sodium [Colace] 100 mg PO BID #20 capsule 08/24/19 Unknown Rx Famotidine [Pepcid] 40 mg PO QHS #10 tablet 08/24/19 Unknown Rx Ondansetron [Zofran Odt] 4 mg PO Q8HR #10 tab.rapdis 08/24/19 Unknown Rx Butalb/Acetaminophen/Caffeine 1 cap PO Q8HR PRN #20 cap 10/19/19 Unknown Rx [Fioricet 50-300-40 mg CAP] methylPREDNISolone [Medrol 4MG 4 mg PO ONCE #1 tab.ds.pk 06/30/20 Unknown Rx DOSEPAK (21 tabs)] Dicyclomine [Bentyl] 20 mg PO Q6H PRN #20 tablet 08/20/20 Unknown Rx Docusate Sodium [Colace CAP] 100 mg PO BID PRN #30 capsule 08/20/20 Unknown Rx Magnesium Citrate 296 ml PO ONCE #1 bottle 08/20/20 Unknown Rx Naproxen 500 mg PO Q12H PRN #20 tablet 08/20/20 Unknown Rx Ondansetron [Zofran Odt] 4 mg PO Q6HR PRN #15 tab.rapdis 08/20/20 Unknown Rx Allergies Allergy/AdvReac Type Severity Reaction Status Date / Time latex Allergy Shortness Verified 08/19/20 21:57 of Breath ED Review of Systems ROS: Stated complaint: DEHYDRATIN/BACK PAIN/KIDNEY PAIN Other details as noted in HPI Constitutional: denies: chills, fever Eyes: denies: eye pain, eye discharge, vision change ENT: denies: ear pain, throat pain Respiratory: denies: cough, shortness of breath, wheezing Cardiovascular: denies: chest pain, palpitations Endocrine: no symptoms reported Gastrointestinal: abdominal pain (pelvic pain and pressure). denies: nausea, diarrhea Genitourinary: urgency, dysuria, frequency, discharge. denies: testicular pain, other Musculoskeletal: denies: back pain, joint swelling, arthralgia Skin: denies: rash, lesions Neurological: denies: headache, weakness, paresthesias Psychiatric: denies: anxiety, depression Hematological/Lymphatic: denies: easy bleeding, easy bruising ED Past Medical Hx - Past Medical History Previous Medical History?: No - Surgical History Past Surgical History?: No - Social History Smoking Status: Never Smoker Substance Use Type: None - Medications Home Medications: Home Medications Medication Instructions Recorded Confirmed Last Taken Type Cyclobenzaprine [Flexeril] 10 mg PO TID PRN #12 tablet 04/16/17 Unknown Rx Naproxen [Naprosyn TAB] 500 mg PO BID PRN #20 tablet 04/16/17 Unknown Rx Dicyclomine [Bentyl] 20 mg PO QID #10 tablet 08/24/19 Unknown Rx Docusate Sodium [Colace] 100 mg PO BID #20 capsule 08/24/19 Unknown Rx Famotidine [Pepcid] 40 mg PO QHS #10 tablet 08/24/19 Unknown Rx Ondansetron [Zofran Odt] 4 mg PO Q8HR #10 tab.rapdis 08/24/19 Unknown Rx Butalb/Acetaminophen/Caffeine 1 cap PO Q8HR PRN #20 cap 10/19/19 Unknown Rx [Fioricet 50-300-40 mg CAP] methylPREDNISolone [Medrol 4MG 4 mg PO ONCE #1 tab.ds.pk 06/30/20 Unknown Rx DOSEPAK (21 tabs)] Dicyclomine [Bentyl] 20 mg PO Q6H PRN #20 tablet 08/20/20 Unknown Rx Docusate Sodium [Colace CAP] 100 mg PO BID PRN #30 capsule 08/20/20 Unknown Rx Magnesium Citrate 296 ml PO ONCE #1 bottle 08/20/20 Unknown Rx Naproxen 500 mg PO Q12H PRN #20 tablet 08/20/20 Unknown Rx Ondansetron [Zofran Odt] 4 mg PO Q6HR PRN #15 tab.rapdis 08/20/20 Unknown Rx ED Physical Exam - General Limitations: No Limitations General appearance: alert, in no apparent distress - Head Head exam: Present: atraumatic, normocephalic, normal inspection - Eye Eye exam: Present: normal appearance, PERRL, EOMI Pupils: Present: normal accommodation - ENT ENT exam: Present: normal exam, normal orophraynx, mucous membranes moist, TM's normal bilaterally, normal external ear exam - Neck Neck exam: Present: normal inspection, full ROM - Respiratory Respiratory exam: Present: normal lung sounds bilaterally. Absent: respiratory distress, wheezes, rales, rhonchi, chest wall tenderness, accessory muscle use, decreased breath sounds - Cardiovascular Cardiovascular Exam: Present: regular rate, normal rhythm, normal heart sounds. Absent: systolic murmur, diastolic murmur, rubs, gallop - GI/Abdominal GI/Abdominal exam: Present: soft, normal bowel sounds. Absent: tenderness, guarding, rebound, hyperactive bowel sounds, hypoactive bowel sounds, bruit - exam: Present: normal inspection External exam: Present: normal external exam, other (Male options advisor Mr. Jaleel Dupreeeliud [employer] LEADER, present) - Extremities Exam Extremities exam: Present: normal inspection, full ROM, normal capillary refill - Back Exam Back exam: Present: normal inspection, full ROM. Absent: CVA tenderness (L), muscle spasm, paraspinal tenderness - Neurological Exam Neurological exam: Present: alert, oriented X3, CN II-XII intact, normal gait, reflexes normal - Psychiatric Psychiatric exam: Present: normal affect, normal mood - Skin Skin exam: Present: warm, dry, intact, normal color. Absent: rash ED Course Vital Signs 08/19/20 08/19/20 21:59 22:00 Temperature 98.2 F Pulse Rate 61 Respiratory 16 Rate Blood Pressure 113/62 O2 Sat by Pulse 98 Oximetry ED Medical Decision Making - Lab Data Result diagrams: 08/20/20 03:51 08/20/20 03:51 - Radiology Data Radiology results: report reviewed, image reviewed Findings [facility] [address] [place] [address] Cat Scan Report Signed Patient: MICKIE HI MR#: [id number] : 1995 Acct:[id number] Age/Sex: 25 / M ADM Date: 08/19/20 Loc: ED Attending Dr: Ordering Physician: VALENTINA JACOBSON Date of Service: 08/20/20 Procedure(s): CT abdomen pelvis wo con Accession Number(s): [id number] cc: VALENTINA JACOBSON CT abdomen pelvis wo con INDICATION / CLINICAL INFORMATION: Pt complains of Pelvic pain ever since .. TECHNIQUE: Axial CT imaging of abdomen and pelvis was obtained without contrast. Coronal and sagittal reformatted imaging obtained and reviewed. All CT scans at this location are performed using CT dose reduction for ALARA by means of automated exposure control. COMPARISON: Prior CT abdomen/pelvis 04/16/2017 FINDINGS: CT abdomen without contrast demonstrates grossly normal appearance of the liver, spleen, pancreas, kidneys, adrenal glands, and gallbladder. No hydronephrosis or intrarenal calculi present. Abdominal aorta is unremarkable. CT pelvis without contrast does not reveal any pelvic mass, free fluid, or focal inflammatory change. A normal appendix is present in the anterior mid abdomen. Prostate gland is of normal size and appearance. There is large colonic stool burden, as noted on prior study. GI tract is ot herwise unremarkable. Visualized lung bases are clear. No acute significant osseous abnormality. IMPRESSION: 1. No acute finding within the abdomen or pelvis. 2. Large colonic stool burden, as noted on the 2017 CT scan. Signer Name: Nora Carrion MD Signed: 08/20/2020 4:15 AM Workstation Name: [id number] Transcribed By: Dictated By: Nora Carrion MD Electronically Authenticated By: Nora Carrion MD Signed Date/Time: 08/20/20414 DD/ 9 TD/TT: - Medical Decision Making This is a 25-year-old -Ind[place]ian male with no past medical history presents to the ED with complaint of acute onset persistent severe suprapubic pain and pressure for the last 2 weeks, worse in the last 2 days. Patient also complains of penile discharge, which he describes as greenish-yellow intermittently with dysuria and urinary frequency and urgency. In the ED, patient is alert and oriented x3 and is not in any distress. Patient was treated for pain in the ED and lab test results were reviewed and are all nonactionable. Abdomen pelvis CT scan without contrast showed no acute abnormalities in the abdomen and pelvis except for a large colonic stool burden, as noted on prior study. GI tract is otherwise unremarkable. Visualized lung bases are clear. Patient was treated for pain in the ED, also treated empirically for STD based on the patient's history. Patient was advised to follow-up with his primary care physician or [facility] department for further STD testing including HIV and syphilis. Patient was advised to return to the ED immediately if symptoms get worse. Patient was therefore discharged home on medications for pain and stool softeners. - Differential Diagnosis Kidney stones; UTI; STD; colitis; appendicitis; urethritis Critical care attestation.: If time is entered above; I have spent that time in minutes in the direct care of this critically ill patient, excluding procedure time. ED Disposition Clinical Impression: Abdominal pain in male, STD (sexually transmitted disease) Constipation Qualifiers: Constipation type: other constipation type Qualified Code(s): K59.09 - Other constipation Disposition: DC-01 TO HOME OR SELFCARE Is pt being admited?: No Does the pt Need Aspirin: No Condition: Stable Instructions: Constipation, Adult, [id number], Abdominal Pain, Adult, Easy-to -Read Additional Instructions: All lab test results are unremarkable. Abdomen pelvis CT scan without contrast showed significant constipation. Therefore take medications with food, drink plenty of fluids and follow-up with your primary care physician in 3 to 5 days for reevaluation. Consider following up with the [facility] department for further STD testing including HIV and syphilis. Prescriptions: Dicyclomine [Bentyl] 20 mg PO Q6H PRN #20 tablet PRN Reason: Abdominal pain Docusate Sodium [Colace CAP] 100 mg PO BID PRN #30 capsule PRN Reason: Constipation Magnesium Citrate 296 ml PO ONCE #1 bottle Naproxen 500 mg PO Q12H PRN #20 tablet PRN Reason: Pain , Severe (7-10) Ondansetron [Zofran Odt] 4 mg PO Q6HR PRN #15 tab.rapdis PRN Reason: Nausea Referrals: [facility] [Provider Group] - 3-5 Days [facility] [Outside] - 3-5 Days Time of Disposition: 06:21 Print Language: AMHARIC
== END 2020-08-20 07:18 | disposition home or self-care (01) ==
LOC: ED 21:28
DX: K59.00 Constipation, unspecified (principal); R10.2 Pelvic and perineal pain; A64 Unspecified sexually transmitted disease; Z79.899 Other long term (current) drug therapy; Z91.040 Latex allergy status
CPT/HCPCS: 36415; 74176; 80053; 81001; 83690; 85025; 99284; J0696; Q0162

== ENCOUNTER 2021-05-22 15:07 | Emergency (ER) | payer BC ==
[2021-05-22 15:31] VITALS: BP 123/52
--- NOTE | 2021-05-22 16:32 | Emergency Department Report ---
ED General Adult HPI - General Chief complaint: Extremity Problem,Nontraumatic Stated complaint: ARM AND LEG PAIN Time Seen by Provider: 05/22/21 15:39 Source: patient Mode of arrival: Ambulatory Limitations: No Limitations - History of Present Illness Initial comments: 26-year-old -Japanese male patient presents with complaints of bilateral leg swelling x2 weeks along with intermittent left-sided chest pain. He denies any current chest pain and states the episodes usually lasts only a few minutes. He describes the pain as achy and tight and radiating down his left arm. No shortness of breath, cough, hemoptysis, numbness/tingling/weakness in his limbs, abdominal pain, recent long travel, or history of DVT/PE/cancer per patient. Patient states the swelling in his legs appears to worsen after standing for extended periods of time. He denies any past medical history or family history of heart disease. - Related Data Previous Rx's Medication Instructions Recorded Last Taken Type Cyclobenzaprine [Flexeril] 10 mg PO TID PRN #12 tablet 04/16/17 Unknown Rx Naproxen [Naprosyn TAB] 500 mg PO BID PRN #20 tablet 04/16/17 Unknown Rx Dicyclomine [Bentyl] 20 mg PO QID #10 tablet 08/24/19 Unknown Rx Docusate Sodium [Colace] 100 mg PO BID #20 capsule 08/24/19 Unknown Rx Famotidine [Pepcid] 40 mg PO QHS #10 tablet 08/24/19 Unknown Rx Ondansetron [Zofran Odt] 4 mg PO Q8HR #10 tab.rapdis 08/24/19 Unknown Rx Butalb/Acetaminophen/Caffeine 1 cap PO Q8HR PRN #20 cap 10/19/19 Unknown Rx [Fioricet 50-300-40 mg CAP] methylPREDNISolone [Medrol 4MG 4 mg PO ONCE #1 tab.ds.pk 06/30/20 Unknown Rx DOSEPAK (21 tabs)] Dicyclomine [Bentyl] 20 mg PO Q6H PRN #20 tablet 08/20/20 Unknown Rx Docusate Sodium [Colace CAP] 100 mg PO BID PRN #30 capsule 08/20/20 Unknown Rx Magnesium Citrate 296 ml PO ONCE #1 bottle 08/20/20 Unknown Rx Naproxen 500 mg PO Q12H PRN #20 tablet 08/20/20 Unknown Rx Ondansetron [Zofran Odt] 4 mg PO Q6HR PRN #15 tab.rapdis 08/20/20 Unknown Rx Allergies Allergy/AdvReac Type Severity Reaction Status Date / Time latex Allergy Shortness Verified 08/19/20 21:57 of Breath ED Review of Systems ROS: Stated complaint: ARM AND LEG PAIN Other details as noted in HPI Constitutional: denies: chills, fever, malaise Respiratory: denies: cough, shortness of breath Cardiovascular: chest pain. denies: palpitations Gastrointestinal: denies: abdominal pain Musculoskeletal: denies: joint swelling, arthralgia Skin: denies: change in color Neurological: denies: numbness, paresthesias, abnormal gait ED Past Medical Hx - Past Medical History Previous Medical History?: No - Surgical History Past Surgical History?: No - Social History Smoking Status: Never Smoker Substance Use Type: None - Medications Home Medications: Home Medications Medication Instructions Recorded Confirmed Last Taken Type Cyclobenzaprine [Flexeril] 10 mg PO TID PRN #12 tablet 04/16/17 Unknown Rx Naproxen [Naprosyn TAB] 500 mg PO BID PRN #20 tablet 04/16/17 Unknown Rx Dicyclomine [Bentyl] 20 mg PO QID #10 tablet 08/24/19 Unknown Rx Docusate Sodium [Colace] 100 mg PO BID #20 capsule 08/24/19 Unknown Rx Famotidine [Pepcid] 40 mg PO QHS #10 tablet 08/24/19 Unknown Rx Ondansetron [Zofran Odt] 4 mg PO Q8HR #10 tab.rapdis 08/24/19 Unknown Rx Butalb/Acetaminophen/Caffeine 1 cap PO Q8HR PRN #20 cap 10/19/19 Unknown Rx [Fioricet 50-300-40 mg CAP] methylPREDNISolone [Medrol 4MG 4 mg PO ONCE #1 tab.ds.pk 06/30/20 Unknown Rx DOSEPAK (21 tabs)] Dicyclomine [Bentyl] 20 mg PO Q6H PRN #20 tablet 08/20/20 Unknown Rx Docusate Sodium [Colace CAP] 100 mg PO BID PRN #30 capsule 08/20/20 Unknown Rx Magnesium Citrate 296 ml PO ONCE #1 bottle 08/20/20 Unknown Rx Naproxen 500 mg PO Q12H PRN #20 tablet 08/20/20 Unknown Rx Ondansetron [Zofran Odt] 4 mg PO Q6HR PRN #15 tab.rapdis 08/20/20 Unknown Rx ED Physical Exam - General Limitations: No Limitations General appearance: alert, in no apparent distress - Head Head exam: Present: atraumatic, normocephalic - Respiratory Respiratory exam: Present: normal lung sounds bilaterally. Absent: respiratory distress - Cardiovascular Cardiovascular Exam: Present: regular rate, normal rhythm. Absent: systolic murmur, diastolic murmur, rubs, gallop - GI/Abdominal GI/Abdominal exam: Present: soft. Absent: tenderness - Extremities Exam Extremities exam: Present: full ROM, other (Minimal edema noted bilaterally to legs, nonpitting; no skin changes noted; pedal pulses are normal bilaterally). Absent: calf tenderness - Neurological Exam Neurological exam: Present: alert, oriented X3 - Psychiatric Psychiatric exam: Present: normal affect, normal mood - Skin Skin exam: Present: warm, dry, intact, normal color. Absent: rash ED Course Vital Signs 05/22/21 15:26 Temperature 98 F Pulse Rate 72 Respiratory 16 Rate Blood Pressure 123/52 [Left] O2 Sat by Pulse 96 Oximetry ED Medical Decision Making - Lab Data Result diagrams: 05/22/21 17:08 05/22/21 17:08 Lab Results 05/22/21 05/22/21 Range/Units 17:08 17:08 WBC 5.2 (4.5-11.0) K/mm3 RBC 4.70 (3.65-5.03) M/mm3 Hgb 14.6 (11.8-15.2) gm/dl Hct 43.6 (35.5-45.6) % MCV 93 (84-94) fl MCH 31 (28-32) pg MCHC 33 (32-34) % RDW 13.3 (13.2-15.2) % Plt Count 153 (140-440) K/mm3 Lymph % (Auto) 28.1 (13.4-35.0) % [place] % (Auto) 12.5 H (0.0-7.3) % Eos % (Auto) 1.0 (0.0-4.3) % Baso % (Auto) 0.5 (0.0-1.8) % Lymph # (Auto) 1.5 (1.2-5.4) K/mm3 [place] # (Auto) 0.6 (0.0-0.8) K/mm3 Eos # (Auto) 0.1 (0.0-0.4) K/mm3 Baso # (Auto) 0.0 (0.0-0.1) K/mm3 Seg Neutrophils % 57.9 (40.0-70.0) % Seg Neutrophils # 3.0 (1.8-7.7) K/mm3 Sodium 142 (137-145) mmol/L Potassium 4.2 (3.6-5.0) mmol/L Chloride 104.0 (98-107) mmol/L Carbon Dioxide 25 (22-30) mmol/L Anion Gap 17 mmol/L BUN 15 (9-20) mg/dL Creatinine 1.1 (0.8-1.3) mg/dL Estimated GFR > 60 ml/min BUN/Creatinine Ratio 14 % Glucose 96 (75-100) mg/dL Calcium 9.0 (8.4-10.2) mg/dL Total Bilirubin 0.30 (0.1-1.2) mg/dL AST 21 (5-40) units/L ALT 13 (7-56) units/L Alkaline Phosphatase 76 (35-129) units/L Troponin T < 0.010 (0.00-0.029) ng/mL NT-Pro-B Natriuret Pep 8.40 (0-450) pg/mL Total Protein 7.4 (6.3-8.2) g/dL Albumin 4.3 (3.9-5) g/dL Albumin/Globulin Ratio 1.4 % - EKG Data EKG shows normal: sinus rhythm Rate: normal - EKG Data When compared to previous EKG there are: other (Possible left atrial) - Radiology Data Radiology results: report reviewed CHEST PA AND LATERAL VIEWS INDICATION: chest pain. COMPARISON: 10/19/2019 FINDINGS: Support devices: None. Heart: Within normal limits. Lungs/Pleura: No acute pulmonary or pleural findings. IMPRESSION: 1. No acute findings. - Medical Decision Making 26-year-old -Japanese male patient presents with complaints of bilateral leg swelling x2 weeks along with intermittent left-sided chest pain. He denies any current chest pain and states the episodes usually lasts only a few minutes. He describes the pain as achy and tight and radiating down his left arm. No shortness of breath, cough, hemoptysis, numbness/tingling/weakness in his limbs, abdominal pain, recent long travel, or history of DVT/PE/cancer per patient. Patient states the swelling in his legs appears to worsen after standing for extended periods of time. He denies any past medical history or family history of heart disease. Heart score = 0. PERC score = 0. No significant abnormalities noted on labs or chest x-ray. EKG is normal. Vitals are normal and patient is well-appearing. Physical exam is normal. Patient to follow-up with PCP in 3 to 5 days for further evaluation. Strict return precautions were discussed in detail patient verbalized understanding peer Critical care attestation.: If time is entered above; I have spent that time in minutes in the direct care of this critically ill patient, excluding procedure time. ED Disposition Clinical Impression: Peripheral edema Disposition: HOME / SELF CARE / HOMELESS Is pt being admited?: No Condition: Stable Instructions: Peripheral Edema Referrals: [facility] [Provider Group] - 3-5 Days
--- NOTE | 2021-05-22 16:53 | XRay Report ---
CHEST PA AND LATERAL VIEWS INDICATION: chest pain. COMPARISON: 10/19/2019 FINDINGS: Support devices: None. Heart: Within normal limits. Lungs/Pleura: No acute pulmonary or pleural findings. IMPRESSION: 1. No acute findings. Signer Name: Pedro Arredondo MD Signed: 05/22/2021 4:48 PM Workstation Name: [id number]
[2021-05-22 17:21] LABS: Basophils % (Auto) 0.5 % (0.0-1.8); Eosinophils # (Auto) 0.1 K/mm3 (0.0-0.4); Hematocrit 43.6 % (35.5-45.6); Hemoglobin 14.6 gm/dl (11.8-15.2); Lymphocytes # (Auto) 1.5 K/mm3 (1.2-5.4); Lymphocytes % (Auto) 28.1 % (13.4-35.0); Mean Corpuscular HGB Conc 33 % (32-34); Mean Corpuscular Volume 93 fl (84-94); Monocytes # (Auto) 0.6 K/mm3 (0.0-0.8); Monocytes % (Auto) 12.5 % (0.0-7.3); Platelet Count 153 K/mm3 (140-440); Red Cell Distribution Width 13.3 % (13.2-15.2)
[2021-05-22 17:52] LABS: Alanine Aminotransferase 13 units/L (7-56); Albumin 4.3 g/dL (3.9-5); BUN/Creatinine Ratio 14; Blood Urea Nitrogen 15 mg/dL (9-20); Hemolysis Index 13
--- NOTE | 2021-05-28 09:50 | Electrocardiograph Report ---
[facility] Test Date: 2021-05-22 Test Time: 16:33:31 Pat Name: MICKIE HI Department: Room: Gender: M Bilingual Social Worker: JACI : 1995 Requested By: NAVYA DOAN Order Number: [id number] Reading MD: Aditya Durán Measurements Intervals [place] Rate: 70 P: 82 CA: 158 QRS: 80 QRSD: 64 T: 69 QT: 376 QTc: 407 Interpretive Statements Sinus rhythm Probable left atrial enlargement No previous ECG available for comparison Electronically Signed On 05-28-2021 9:50:31 EDT by Aditya Durán
== END 2021-05-22 18:40 | disposition home or self-care (01) ==
LOC: ED 15:07
DX: R60.0 Localized edema (principal); Z91.040 Latex allergy status
CPT/HCPCS: 36415; 71046; 80053; 83880; 84484; 85025; 93005; 99283

== ENCOUNTER 2022-03-09 08:43 | Emergency (ER) | payer BC, OTHER ==
[2022-03-09] MEDS ORDERED: TETANUS,DIPH,PERTUSS(ACELL) VACCINE 0.5 ML SYRINGE IM ONE (09:28)
--- NOTE | 2022-03-09 09:28 | Emergency Department Report ---
- General Chief Complaint: Wound/Laceration Stated Complaint: CUT ON LT WRIST Time Seen by Provider: 03/09/22 09:27 Source: patient Mode of arrival: Ambulatory Limitations: No Limitations - History of Present Illness Initial Comments: Pt reports he accidentally cut his left wrist with glass and has been experiencing increased pain and swelling to the left hand over the past two d ays. The wound is clean and dry. Superficial. No bleeding. No drainage. Pt was opening glass bottle when it shattered cutting him. He comes in for a tdap - last given in high school Denies any other injury -: days(s) (2) Location: other Patient Tetanus UTD: No Context: accidental Associated Symptoms: none - Related Data Previous Rx's Medication Instructions Recorded Last Taken Type Cyclobenzaprine [Flexeril] 10 mg PO TID PRN #12 tablet 04/16/17 Unknown Rx Naproxen [Naprosyn TAB] 500 mg PO BID PRN #20 tablet 04/16/17 Unknown Rx Famotidine [Pepcid] 40 mg PO QHS #10 tablet 08/24/19 Unknown Rx Ondansetron [Zofran Odt] 4 mg PO Q8HR #10 tab.rapdis 08/24/19 Unknown Rx methylPREDNISolone [Medrol 4MG 4 mg PO ONCE #1 tab.ds.pk 06/30/20 Unknown Rx DOSEPAK (21 tabs)] Magnesium Citrate 296 ml PO ONCE #1 bottle 08/20/20 Unknown Rx Naproxen 500 mg PO Q12H PRN #20 tablet 08/20/20 Unknown Rx Ondansetron [Zofran Odt] 4 mg PO Q6HR PRN #15 tab.rapdis 08/20/20 Unknown Rx Allergies Allergy/AdvReac Type Severity Reaction Status Date / Time latex Allergy Shortness Verified 08/19/20 21:57 of Breath ED Review of Systems ROS: Stated complaint: CUT ON LT WRIST Other details as noted in HPI Comment: All other systems reviewed and negative ED Past Medical Hx - Past Medical History Previous Medical History?: Yes Hx Asthma: Yes - Surgical History Past Surgical History?: No - Family History Family history: no significant - Social History Smoking Status: Never Smoker Substance Use Type: None - Medications Home Medications: Home Medications Medication Instructions Recorded Confirmed Last Taken Type Cyclobenzaprine [Flexeril] 10 mg PO TID PRN #12 tablet 04/16/17 Unknown Rx Naproxen [Naprosyn TAB] 500 mg PO BID PRN #20 tablet 04/16/17 Unknown Rx Famotidine [Pepcid] 40 mg PO QHS #10 tablet 08/24/19 Unknown Rx Ondansetron [Zofran Odt] 4 mg PO Q8HR #10 tab.rapdis 08/24/19 Unknown Rx methylPREDNISolone [Medrol 4MG 4 mg PO ONCE #1 tab.ds.pk 06/30/20 Unknown Rx DOSEPAK (21 tabs)] Magnesium Citrate 296 ml PO ONCE #1 bottle 08/20/20 Unknown Rx Naproxen 500 mg PO Q12H PRN #20 tablet 08/20/20 Unknown Rx Ondansetron [Zofran Odt] 4 mg PO Q6HR PRN #15 tab.rapdis 08/20/20 Unknown Rx ED Physical Exam - General Limitations: No Limitations General appearance: alert, in no apparent distress - Head Head exam: Present: atraumatic, normocephalic - Eye Eye exam: Present: normal appearance - ENT ENT exam: Present: mucous membranes moist - Neck Neck exam: Present: normal inspection - Respiratory Respiratory exam: Present: normal lung sounds bilaterally. Absent: respiratory distress - Cardiovascular Cardiovascular Exam: Present: regular rate, normal rhythm. Absent: systolic murmur, diastolic murmur, rubs, gallop - GI/Abdominal GI/Abdominal exam: Present: soft, normal bowel sounds - Rectal Rectal exam: Present: deferred - Extremities Exam Extremities exam: Present: normal inspection - Back Exam Back exam: Present: normal inspection - Neurological Exam Neurological exam: Present: alert, oriented X3 - Psychiatric Psychiatric exam: Present: normal affect, normal mood - Skin Skin exam: Present: warm, dry, normal color. Absent: rash - Expanded Skin Exam Expanded 1 - 1 cm laceration- superficial - well approximated. no drainage ED Course Vital Signs 03/09/22 09:27 Temperature 97.7 F Pulse Rate 87 Respiratory 16 Rate Blood Pressure 112/77 O2 Sat by Pulse 97 Oximetry ED Medical Decision Making - Medical Decision Making Vital Signs 03/09/22 09:27 Temperature 97.7 F Pulse Rate 87 Respiratory 16 Rate Blood Pressure 112/77 O2 Sat by Pulse 97 Oximetry 2 day old lac lac cleaned and dressed pt educated on wound care peripheral vasc/neurovasc intact ulnar and radial nerve intact distal sensation intact tdap given pt dc home with dc plan of care including diet, meds, activity and follow up. On d/c exam pt ambulatory and non ill appearing - Differential Diagnosis lac Critical care attestation.: If time is entered above; I have spent that time in minutes in the direct care of this critically ill patient, excluding procedure time. ED Disposition Clinical Impression: Laceration Disposition: 01 HOME / SELF CARE / HOMELESS Is pt being admited?: No Does the pt Need Aspirin: No Condition: Stable Additional Instructions: KEEP WOUND CLEAN AND DRY NO OINTMENT MOTRIN OR TYLENOL FOR PAIN DIET AND ACTIVITY TOLERATED FOLLOW UP WITH PCP REFERRAL BELOW Referrals: JOSE BLAND MD [Staff Physician] - 3-5 Days Forms: Work/School Release Form(ED) Time of Disposition: 10:16
[2022-03-09 09:30] VITALS: BP 112/77
== END 2022-03-09 10:30 | disposition home or self-care (01) ==
LOC: ED 08:43
DX: S61.512A Laceration without foreign body of left wrist, initial encounter (principal); X58.XXXA Exposure to other specified factors, initial encounter; Z91.040 Latex allergy status; Y93.89 Activity, other specified; Y92.89 Other specified places as the place of occurrence of the external cause; Y99.8 Other external cause status; J45.909 Unspecified asthma, uncomplicated
CPT/HCPCS: 90471; 90715; 99282